=== PATIENT | male | born 1985 | race Caucasian/White ===

== ENCOUNTER → 2019-07-03 | Outpatient (CLI) | payer OTHER ==
[~2019-07-03] MED LIST: AMLO5 PO; BENADRYL25 MG PO; CEPH250A PO; CETI5 PO; HYDACE5 PO; HYDACE7.5 PO; LOSARTAN POTAS100 MG PO; NAPR500 PO; OXYACE5T PO; PROM25 PO; RXCEPH500 PO; RXONDA4ODT MM; RXOXYACE PO; TRIA80TC TOP
[2019-07-06 19:05] LABS: CHLAMYDIA TRACHOMATIS, NAA Negative (Negative); NEISSERIA GONORRHOEAE, NAA Negative (Negative)
== END | disposition home or self-care (01) ==
LOC: LAB 16:30 → LAB SHORT 16:30
PROVIDERS: Family Medicine
DX: Z11.3 Encounter for screening for infections with a predominantly sexual mode of transmission (principal)
CPT/HCPCS: 87491; 87591

== ENCOUNTER 2022-10-24 12:54 | Observation (INO) | payer OTHER ==
[~2022-10-24] VITALS: Ht 188 cm; Wt 125.2 kg
[~2022-10-24 12:54] MED LIST changes: +LOSA50 PO; -LOSARTAN POTAS100 MG PO
[2022-10-24 14:23] LABS: BASOPHILS ABSOLUTE AUTO 0.09 K/mm3 (0.00-0.23); BASOPHILS PERCENT AUTO 1 % (0-2); EOSINOPHILS ABSOLUTE AUTO 0.11 K/mm3 (0.00-0.68); EOSINOPHILS PERCENT AUTO 1 % (0-6); Hematocrit 47.7 % (37.0-53.0); Hemoglobin 17.6 g/dL (13.5-17.5); IMMATURE GRAN ABSOLUTE AUTO 0.05 K/mm3 (0.00-0.10); IMMATURE GRAN PERCENT AUTO 0 % (0-1); LYMPHOCYTES PERCENT AUTO 16 % (21-46); MONOCYTES PERCENT AUTO 10 % (4-13); Mean Corpuscular HGB 31.7 pg (26.0-34.0); Mean Corpuscular HGB Conc 36.9 g/dL (31.5-36.5); Mean Corpuscular Volume 86 fL (80-100); Mean Platelet Volume 11.6 fL (9.1-12.4); NEUTROPHILS ABSOLUTE AUTO 8.37 K/mm3 (1.96-9.15); NEUTROPHILS PERCENT AUTO 72 % (41-73); Platelet Count 250 K/mm3 (150-400); RDW Coefficient Variation 13.7 % (11.7-14.2); RDW Standard Deviation 42.2 fL (35.1-46.3); Red Blood Cell Count 5.56 M/mm3 (4.30-5.90); White Blood Cell Count 11.62 K/mm3 (4.00-11.30)
[2022-10-24 14:27] LABS: Albumin, Blood 3.8 g/dL (3.4-5.0); Albumin/Globulin Ratio 1.1 (0.8-1.8); Bun/Creatinine Ratio 10.3 (12.0-20.0); Calcium, Blood 9.2 mg/dL (8.5-10.1); Creatinine, Blood 1.36 mg/dL (0.60-1.20); Globulin, Blood 3.4 g/dL (2.2-4.0); Potassium, Blood 3.6 mmol/L (3.5-5.5); Total Protein, Blood 7.2 g/dL (6.4-8.2)
[2022-10-24 17:13] LABS: Source, Urine Clean Catch
[2022-10-24 17:17] LABS: Appearance, Urine Clear (Clear); Bilirubin, Urine Neg (Neg); Blood, Urine Neg (Neg); Glucose Qualitative, Urine Neg (Neg); Ketones, Urine Neg (Neg); Leukocyte Esterase, Urine Neg (Neg); Nitrite, Urine Neg (Neg); Protein, Urine Neg (Neg); Urobilinogen, Urine NORM (Normal)
[2022-10-24 17:30] LABS: Color, Urine Pale Yellow (P-Yellow)
--- NOTE | 2022-10-25 04:25 | NUR ---
SHIFT SUMMARY PT ARRIVED TO FLOOR AROUND 2029 WITH AT BEDSIDE. ASSESSMENT COMPLETE, ADMISSION COMPLETE. SKIN INTACT. PT SBP 170'S. ADMINISTERED PRN HYDRALYZINE THAT WAS EFFECTIVE, SBP BELOW 160 REMINAING OF SHIFT. PT REPORTS MILD SOB AND A PRODUCTIVE COUGH. PT RECIEVING IV LASIX AND RESTARTED HOME BP MEDS. EDUCATED PT TO SAVE URINE TO KEEP TRACK OF I/O'S. PT INDEPENDENT IN ROOM. NSR/TACH ON TELE. PT ORINETED X4, ABLE TO MAKE NEEDS KNOWN, CALL LIGHT IN REACH.
[2022-10-25 06:02] LABS: Albumin, Blood 3.1 g/dL (3.4-5.0); Anion Gap 6 mmol/L (6-16); Blood Urea Nitrogen 17 mg/dL (8-24); Bun/Creatinine Ratio 14.8 (12.0-20.0); CO2, Blood 26 mmol/L (21-32); Calcium, Blood 8.7 mg/dL (8.5-10.1); Chloride, Blood 104 mmol/L (98-108); Creatinine, Blood 1.15 mg/dL (0.60-1.20); Glomerular Filtration Rate 85 (60-); Glucose, Blood 114 mg/dL (70-99); Phosphorus, Blood 3.5 mg/dL (2.5-4.9); Potassium, Blood 3.6 mmol/L (3.5-5.5); Sodium, Blood 136 mmol/L (136-145)
[2022-10-25] MEDS ORDERED: FURO20 PO (16:48)
[2022-10-25] MEDS ORDERED: CARV6.25 PO (16:49)
--- NOTE | 2022-10-25 17:56 | NUR ---
SHIFT SUMMARY: PATIENT A&OX4. CALM, PLEASANT AND COOPERATIVE c CARE. USES CALL LIGHT APPROPRIATELY AND ABLE TO ADVOCATE FOR HIS NEEDS. PATIENT HAD ECHO DONE THIS AM. AWAITING FOR RESULT. RECEIVED SCHEDULED MEDS THIS SHIFT. VITAL SIGNS REVIEWED. AMBULATES IN ROOM AND HALLWAY INDEPENDENTLY. CALL LIGHT IN REACH.
--- NOTE | 2022-10-25 18:16 | NUR ---
RN WAS REVIEWED DISCHARGE MEDICATIONS AND INSTRUCTIONS WITH PT AND SPOUSE. RESULTS FROM ECHO CAME BACK, AND RN CALLED DR. BURNS. DR. BURNS WAS PUT ON SPEAKER PHONE IN THE PT'S ROOM TO CONSULT WITH THE PT AND PT'S SPOUSE TO EXPLAIN TEST RESULTS AND RECOMMENDATIONS. DR. BURNS RECOMMENDED THAT PT NOT RETURN TO WORK UNTIL HE IS EVALUATED BY CARDIOLOGY, AND THAT HE GET A NUCLEAR MEDICINE STRESS TEST. DISCHARGE ORDER CANCELLED. DR. BURNS ALSO ADDED ORDERS FOR LIPITOR 40 MG DAILY, START NOW, AND ASPIRIN 81 MG DAILY, START NOW. ALSO ADDED A CONSULT WITH DR. GUAJARDO, CARDIOLOGY. RN TO UPDATE ORDERS.
[2022-10-25 19:34] LABS: CHOL/HDL RATIO 5.7; Cholesterol 246 mg/dL (50-200); HDL Cholesterol 43 mg/dL (>39); LDL/HDL RATIO 3.9; Low Density Lipoprotein Chol 168 mg/dL (0-110); Triglycerides 177 mg/dL (30-140); Very Low Density Lipoprot Chol 35 mg/dL (6-28)
--- NOTE | 2022-10-26 04:26 | NUR ---
SHIFT SUMMARY NO OVERNIGHT EVENTS. BP CONTROLED. PT NPO AT 0200 FOR STRESS TEST TODAY, PT AWARE AND COMPLIANT. PT STATES BREATHING IS BETTER THEN PREVISOULY. DENIES ANY PAIN OR ANY OTHER S/S OF DISTRESS. PT INDEPENDENT IN ROOM. ORIENTED X4, ABLE TO MAKE NEEDS KNOWN.
--- NOTE | 2022-10-26 10:35 | NUR ---
PATIENT LEFT THE ROOM AT THIS TIME TRANSPORTED VIA WHEELCHAIR TO IMAGING.
--- NOTE | 2022-10-26 18:44 | NUR ---
SHIFT SUMMARY: PATIENT A&OX4. CALM, PLEASANT AND COOPERATIVE c CARE. DENIES CP/PRESSURE. ON TELE, NSR HR AT 78 BPM, PER FURNITURE MOVERTYRESE BECK. PATIENT HAD HIS FIRST PART OF STRESS TEST TODAY. DR. BAKER CAME AND SPOKE c PATIENT THIS PM. THE PLAN TO HAVE THE SECOND PART OF STRESS TEST TOMORROW. PATIENT WILL BE NPO AT [place] AND NO CAFFEINE. PATIENT HAS BEEN AMBULATING IN ROOM INDEPENDENTLY. USE CALL LIGHT APPROPRIATELY AND ABLE TO MAKE NEEDS KNOWN. VITAL SIGNS REVIEWED. CALL LIGHT IN REACH.
--- NOTE | 2022-10-27 04:23 | NUR ---
SHIFT SUMMARY PATIENT HAD NO ACUTE CHANGES. AXO X 4 AND INDEPENDENT IN ROOM. NPO FOR STRESS TEST PART TWO. PIV REMAINS INTACT. ON TELEMETRY NSR 74. DENIES CHEST PAIN, SOB, AND N/V. VSS/AFEBRILE. CALL LIGHT IN REACH. BED IN LOWEST POSITION. WILL CONTINUE TO MONITOR UNTIL DAY SHIFT NURSE ASSUMES CARE.
[2022-10-27 04:49] LABS: BASOPHILS ABSOLUTE AUTO 0.06 K/mm3 (0.00-0.23); BASOPHILS PERCENT AUTO 1 % (0-2); EOSINOPHILS ABSOLUTE AUTO 0.31 K/mm3 (0.00-0.68); EOSINOPHILS PERCENT AUTO 4 % (0-6); Hematocrit 44.3 % (37.0-53.0); Hemoglobin 16.1 g/dL (13.5-17.5); IMMATURE GRAN ABSOLUTE AUTO 0.04 K/mm3 (0.00-0.10); IMMATURE GRAN PERCENT AUTO 1 % (0-1); LYMPHOCYTES ABSOLUTE AUTO 1.93 K/mm3 (0.84-5.20); LYMPHOCYTES PERCENT AUTO 25 % (21-46); MONOCYTES ABSOLUTE AUTO 0.99 K/mm3 (0.16-1.47); MONOCYTES PERCENT AUTO 13 % (4-13); Mean Corpuscular HGB 31.6 pg (26.0-34.0); Mean Corpuscular HGB Conc 36.3 g/dL (31.5-36.5); Mean Corpuscular Volume 87 fL (80-100); Mean Platelet Volume 11.5 fL (9.1-12.4); NEUTROPHILS ABSOLUTE AUTO 4.28 K/mm3 (1.96-9.15); NEUTROPHILS PERCENT AUTO 56 % (41-73); Platelet Count 245 K/mm3 (150-400); RDW Coefficient Variation 13.6 % (11.7-14.2); RDW Standard Deviation 42.6 fL (35.1-46.3); White Blood Cell Count 7.61 K/mm3 (4.00-11.30)
[2022-10-27 05:25] LABS: Bun/Creatinine Ratio 13.6 (12.0-20.0); Calcium, Blood 8.4 mg/dL (8.5-10.1); Creatinine, Blood 1.25 mg/dL (0.60-1.20); Potassium, Blood 3.6 mmol/L (3.5-5.5)
[2022-10-27] MEDS ORDERED: ATOR40TA PO (13:48)
--- NOTE | 2022-10-27 14:31 | NUR ---
SHIFT SUMMARY PATIENT IS ALERT AND ORIENTED. PATIENT HAS BEEN IND IN ROOM THIS SHIFT. PATIENT HAS HAD SECOND PART OF STRESS DONE TODAY. PATIENT IS BEING DISCHARGED HOME WITH FAMILY TRANSPORTING. PATIENT HAS HAD NO ACUTE EVENTS THIS SHIFT. VITAL SIGNS REVIEWED.
== END 2022-10-27 15:30 | disposition home or self-care (01) ==
LOC: ER 12:54 → MEDS 16:48 → ENPENDDIS 10-25 18:00 → MEDS 10-27 15:30
PROVIDERS: Internal Medicine Cardiovascular Disease; Physician Assistant; ADMIT Internal Medicine
DX: I11.0 Hypertensive heart disease with heart failure (principal); I50.33 Acute on chronic diastolic (congestive) heart failure; I16.0 Hypertensive urgency; N17.9 Acute kidney failure, unspecified; T46.5X6A Underdosing of other antihypertensive drugs, initial encounter; Z91.128 Patient's intentional underdosing of medication regimen for other reason; E78.5 Hyperlipidemia, unspecified; K50.90 Crohn's disease, unspecified, without complications; R91.8 Other nonspecific abnormal finding of lung field; N28.9 Disorder of kidney and ureter, unspecified; R79.1 Abnormal coagulation profile; F17.220 Nicotine dependence, chewing tobacco, uncomplicated; Z91.038 Other insect allergy status; Z91.018 Allergy to other foods; Z82.49 Family history of ischemic heart disease and other diseases of the circulatory system
CPT/HCPCS: 36415; 71046; 71260; 78452; 80048; 80053; 80061; 80069; 81003; 82533; 83036; 83880; 84443; 84484; 85025; 85379; 93005; 93010; 93017; 93306; 93356; 96361; 96372; 96374-59; 96375-59; 96376; 99285-25; A9270; A9500; G0378; J0280; J0360; J1650; J1940; J2785; J7030; Q9967

== ENCOUNTER → 2022-11-09 | Outpatient (CLI) | payer OTHER ==
[~2022-11-09] MED LIST changes: +ATOR40TA PO; +CARV6.25 PO; +FURO20 PO
== END | disposition home or self-care (01) ==
LOC: LAB 05:00 → LAB SHORT 05:00 → LAB FUT 11-02 16:45
DX: I15.9 Secondary hypertension, unspecified (principal)
CPT/HCPCS: 81050

== ENCOUNTER → 2023-05-17 | Outpatient (CLI) | payer OTHER ==
[2023-05-17 18:11] LABS: Adenovirus F 40/41 Not Detected (NOT DETECT); Astrovirus Not Detected (NOT DETECT); Campylobacter Sp Not Detected (NOT DETECT); Cryptosporidium Not Detected (NOT DETECT); Cyclospora Cayetanensis Not Detected (NOT DETECT); E. Coli O157 Not Detected (NOT DETECT); Entamoeba Histolytica Not Detected (NOT DETECT); Enteroaggregative E. coli-EAEC Not Detected (NOT DETECT); Enteropathogenic E. coli-EPEC Not Detected (NOT DETECT); Enterotoxigenic E. coli-ETEC Not Detected (NOT DETECT); Giardia Lamblia Not Detected (NOT DETECT); Norovirus GI/GII Not Detected (NOT DETECT); Plesiomonas Shigelloides Not Detected (NOT DETECT); Rotavirus A Not Detected (NOT DETECT); Salmonella Sp Not Detected (NOT DETECT); Sapovirus Not Detected (NOT DETECT); Shiga Toxin-prod E. coli-STEC Not Detected (NOT DETECT); Shigella/Enteroin E. coli-EIEC Not Detected (NOT DETECT); Vibrio Cholerae Not Detected (NOT DETECT); Vibrio Sp Not Detected (NOT DETECT); Yersinia Enterocolitica Not Detected (NOT DETECT)
== END | disposition home or self-care (01) ==
LOC: LAB 05:30 → LAB SHORT 05:30
PROVIDERS: Physician Assistant Medical
DX: K50.10 Crohn's disease of large intestine without complications (principal)
CPT/HCPCS: 83993; 87507